=== PATIENT | female | born 1990 | race Asian ===

== ENCOUNTER 2016-10-23 14:59 | Emergency (ER) | payer SELFPAY ==
[~2016-10-23] VITALS: Ht 165.1 cm; Wt 104.3 kg
[~2016-10-23 14:59] MED LIST: CYCL10TA2 PO; IBUP-1060 PO; NAPR250T2 PO; OXYC-323 PO
[2016-10-23 15:41] LABS: BILIRUBIN,URINE NEGATIVE (NEG); GLUCOSE,URINE NEGATIVE (NEG); NITRITE,URINE NEGATIVE (NEG); PROTEIN,URINE NEGATIVE (NEG-TRACE); UROBILINOGEN,URINE 0.2 mg/dL (0.2 mg/dL)
--- NOTE | 2016-10-23 15:43 | PHYS DOC ---
Past Medical History Past Medical History: No Pertinent History Past Surgical History: Additional Past Surgical Histo: FOR STILLBORN AT 8 MONTHS: OCTOBER 04, 2017 Alcohol Use: None Drug Use: None Adult General Chief Complaint Chief Complaint: TEST HPI HPI Patient is a 26 year old female who presents requesting a test. She reports she has had some lower abdominal discomfort for about a week and thinks she might be . Her last menstrual period was sometime in August or September. She denies fevers or chills, nausea or vomiting, diarrhea or constipation, dysuria or hematuria, vaginal bleeding or discharge. She is , states one of her children after . She speaks [employer] & is accompanied by a friend who is interpreting for her. Review of Systems Review of Systems Constitutional: Denies fever or chills HENT: Denies nasal congestion or sore throat Respiratory: Denies cough or shortness of breath Cardiovascular: Denies chest pain or edema GI: Denies abdominal pain, nausea, vomiting, bloody stools or diarrhea : Denies dysuria or hematuria Musculoskeletal: Denies back pain or joint pain Integument: Denies rash or skin lesions Neurologic: Denies headache Allergies Allergies Allergies Coded Allergies Type Severity Reaction Last Updated Verified No Known Drug Allergies 03/08/14 No Physical Exam Physical Exam Constitutional: Obese, no acute distress, non-toxic appearance. HENT: Normocephalic, atraumatic, bilateral external ears normal, oropharynx moist, nose normal. Eyes: conjunctiva normal, no discharge. Cardiovascular: RRR, no murmurs, no edema. Lungs & Thorax: LCTAB, no wheezing, no respiratory distress. Abdomen: soft, nontender, nondistended. No masses or pulsatile masses, no rebound or guarding Skin: Warm, dry, no erythema, no rash. Back: No CVA tenderness. Extremities: No tenderness, no edema. Neurologic: Alert and oriented X 3 Current Patient Data Vital Signs Vital Signs Date Time Temp Pulse Resp B/P (MAP) Pulse Ox O2 Delivery O2 Flow Rate FiO2 10/23/16 16:16 83 16 122/64 (83) 99 10/23/16 15:00 98.1 Room Air 98.1 Lab Values Laboratory Tests Test 10/23/16 14:18 10/23/16 15:09 POC Urine HCG, Qualitative Hcg positive (Negative) Urine Collection Type Void Urine Color Yellow Urine Clarity Clear Urine pH 6.0 Urine Specific [place] 1.010 Urine Protein Negative mg/dL (NEG-TRACE) Urine Glucose (UA) Negative mg/dL (NEG) Urine Ketones (Stick) Negative mg/dL (NEG) Urine Blood Small (NEG) Urine Nitrite Negative (NEG) Urine Bilirubin Negative (NEG) Urine Urobilinogen Dipstick 0.2 mg/dL (0.2 mg/dL) Urine Leukocyte Esterase Large (NEG) Urine RBC Occ /HPF (0-2) Urine WBC 11-20 /HPF (0-4) Urine Squamous Epithelial Cells Many /LPF Urine Bacteria Many /HPF (0-FEW) Urine Mucus Slight /LPF EKG EKG [] Radiology/Procedures Radiology/Procedures [] Course & Med Decision Making Course & Med Decision Making Pertinent Labs and Imaging studies reviewed. (See chart for details) The patient presents with request for test. test is positive. She has contaminated UA with large bacteria, will treat with macrobid. Recommend follow up in OB clinic with Dr. Obrien as soon as possible. Come back for high fever, uncontrolled vomiting, severe abdominal/ pelvic pain, heavy bleeding requiring > 1 pad per hour, any otherwise worsening condition. Discharged home in stable condition. [] Dragon Disclaimer Dragon Disclaimer This electronic medical record was generated, in whole or in part, using a voice recognition dictation system. Departure Departure Impression: Primary Impression: Additional Impression: Urinary tract infection Disposition: 01 HOME, SELF-CARE Condition: STABLE Referrals: NO PCP (PCP) VENECIA OBRIEN Jr, MD Patient Instructions: - First Trimester, [id number], Urinary Tract Infection, [id number] Additional Instructions: You were seen in the emergency department today for test which did show that you are . You also had a bladder infection. Please take the prescribed antibiotic. Follow-up as soon as possible with Dr. Obrien in the OB clinic. Return to the emergency department for high fever, severe pain, uncontrolled vomiting, heavy vaginal bleeding requiring more than 1 pad per hour , any otherwise worsening condition. Scripts Nitrofurantoin Monohyd/M-Cryst (MACROBID 100 MG CAPSULE) 100 Mg Capsule 1 CAP PO BID, #14 CAP Prov: AFSANEH LANE MD 10/23/16 Problem Qualifiers AFSANEH LANE MD Oct 23, 2016 15:43
[2016-10-23 15:51] LABS: BACTERIA,URINE MANY /HPF (0-FEW); RBC,URINE OCC /HPF (0-2); SQUAMOUS EPITHELIAL CELL,UR MANY /LPF
[2016-10-23] MEDS ORDERED: NITR100C62 PO (16:09)
[2016-10-23 16:16] VITALS: BP 122/64
== END 2016-10-23 16:16 | disposition home or self-care (01) ==
LOC: ER 14:59
DX: O23.40 Unspecified infection of urinary tract in pregnancy, unspecified trimester (principal); Z3A.00 Weeks of gestation of pregnancy not specified; Z98.890 Other specified postprocedural states
CPT/HCPCS: 81001; 81025; 87086; 87186; 99284

== ENCOUNTER 2016-11-02 20:41 | Emergency (ER) | payer SELFPAY ==
[~2016-11-02] VITALS: Ht 157.5 cm; Wt 86.2 kg
[~2016-11-02 20:41] MED LIST changes: +NITR100C62 PO
[2016-11-02 21:27] LABS: BILIRUBIN,URINE NEGATIVE (NEG); GLUCOSE,URINE NEGATIVE (NEG); NITRITE,URINE NEGATIVE (NEG); PROTEIN,URINE NEGATIVE (NEG-TRACE); UROBILINOGEN,URINE 0.2 mg/dL (0.2 mg/dL)
[2016-11-02 21:29] LABS: BASO # 0.1 x10^3/uL (0.0-0.2); BASO % 1 % (0-3); EOS % 3 % (0-3); HEMATOCRIT 34.2 % (36.0-47.0); HEMOGLOBIN 10.7 g/dL (12.0-15.5); LYMPH # 2.6 x10^3/uL (1.0-4.8); LYMPH % 26 % (24-48); MEAN CORPUSCULAR HEMOGLOBIN 25 pg (25-35); MEAN CORPUSCULAR HGB CONC 31 g/dL (31-37); MEAN CORPUSCULAR VOLUME 78 fL (79-100); MONO % 8 % (0-9); NEUT % 61 % (31-73); PLATELET COUNT 362 x10^3/uL (140-400); RED BLOOD COUNT 4.39 x10^6/uL (3.50-5.40); RED CELL DISTRIBUTION WIDTH 16.8 % (11.5-14.5); WHITE BLOOD COUNT 9.9 x10^3/uL (4.0-11.0)
[2016-11-02 21:37] LABS: RBC,URINE RARE /HPF (0-2)
[2016-11-02 21:38] LABS: BACTERIA,URINE FEW /HPF (0-FEW); SQUAMOUS EPITHELIAL CELL,UR FEW /LPF; WBC,URINE OCC /HPF (0-4)
[2016-11-02 21:44] LABS: CALCIUM 8.2 mg/dL (8.5-10.1); CREATININE 0.8 mg/dL (0.6-1.0); GFR 85.4; POTASSIUM 3.7 mmol/L (3.5-5.1)
--- NOTE | 2016-11-03 00:41 | RAD ---
EXAM: OB < 14 WKS HISTORY: SPOTTING HCG 16780 COMPARISON: None. TECHNIQUE: Transverse and longitudinal sonography of the pelvis is performed utilizing transabdominal and transvaginal transducers. FINDINGS: Transabdominal imaging demonstrates an anteflexed uterus measuring 9.8 x 4.5 x 6.2 cm. Within the uterus is 7 gestational sac measuring up to 2.7 cm. An embryo is visualized within the gestational sac, with crown-rump length of 1.7 cm corresponding with ultrasound gestational age of 8 weeks 1 day. heart rate documented at 185 bpm. The right ovary is visualized measuring 2.1 x 1.2 x 1.5 cm, with internal blood flow documented. No adnexal mass is seen. The left ovary measures 3.0 x 1.9 x 1.9 cm, with internal blood flow documented. No adnexal mass is seen. No free fluid is seen. Transvaginal imaging demonstrates a nabothian cyst present in the cervix. There is redemonstration of the intrauterine gestational sac, with a yolk sac visualized. The crown-rump length is documented at 2.0 cm corresponding with ultrasound gestational age of 8 weeks 4 days. heart rate of 185 bpm documented. Left ovary visualized measuring 2.0 x 2.4 x 2.2 cm. Within the left ovary is a 2.2 cm hypoechoic, oval structure, likely represents the corpus luteal cyst. Internal blood flow is documented. Right ovary measures 2.4 x 1.7 x 1.7 cm, with blood flow documented. No adnexal mass is seen bilaterally. No free fluid is seen. IMPRESSION: 1. Single live intrauterine with an overall ultrasound gestational age of 8 weeks 3 days corresponding with an estimated date of delivery of 06/11/2017. 2. Both ovaries seen with blood flow documented. No adnexal mass. Electronically signed by: Francisca Locke MD (11/03/2016 12:37 AM) [facility]
[2016-11-03 01:00] VITALS: BP 95/52
--- NOTE | 2016-11-03 05:28 | PHYS DOC ---
Past Medical History Past Medical History: No Pertinent History Past Surgical History: Additional Past Surgical Histo: FOR STILLBORN AT 8 MONTHS: OCTOBER 04, 2017 Alcohol Use: None Drug Use: None Adult General Chief Complaint Chief Complaint: VAGINAL BLEEDING HPI HPI Patient is a 26 year old G4, P3 approximately 8 weeks station female who presents with upper abdominal pain and constipation. Patient states symptoms of intermittent for the past 3 days and. It is described as dull and migratory. Patient has urinary frequency or urinary urgency. No vaginal bleeding or discharge. No other acute symptoms or complaints. Review of Systems Review of Systems Review symptoms as per history of present illness. All other review symptoms are negative. Allergies Allergies Allergies Coded Allergies Type Severity Reaction Last Updated Verified No Known Drug Allergies 03/08/14 No Physical Exam Physical Exam Constitutional: Well developed, well nourished, no acute distress, non-toxic appearance. [] HENT: Normocephalic, atraumatic, bilateral external ears normal, oropharynx moist, no oral exudates, nose normal. [] Eyes: PERRLA, EOMI, conjunctiva normal, no discharge. [] Neck: Normal range of motion, no tenderness, supple, no stridor. [] Cardiovascular:Heart rate regular rhythm, no murmur [] Lungs & Thorax: Bilateral breath sounds clear to auscultation [] Abdomen: Bowel sounds normal, soft, nondescript proper abdominal pain, no rebound rigidity or guarding. [] Skin: Warm, dry, no erythema, no rash. [] Back: No tenderness, no CVA tenderness. [] Extremities: No tenderness, no cyanosis, no clubbing, ROM intact, no edema. [] Neurologic: Alert and oriented X 3, normal motor function, normal sensory function, no focal deficits noted. [] Psychologic: Affect normal, judgement normal, mood normal. [] Current Patient Data Vital Signs Vital Signs Date Time Temp Pulse Resp B/P (MAP) Pulse Ox O2 Delivery O2 Flow Rate FiO2 11/03/16 01:00 68 18 95/52 (66) 100 Room Air 11/02/16 21:07 99.2 99.2 Lab Values Laboratory Tests Test 11/02/16 20:20 11/02/16 20:50 11/02/16 21:20 POC Urine HCG, Qualitative Hcg positive (Negative) Urine Collection Type Unknown Urine Color Straw Urine Clarity Clear Urine pH 7.0 Urine Specific [place] 1.010 Urine Protein Negative mg/dL (NEG-TRACE) Urine Glucose (UA) Negative mg/dL (NEG) Urine Ketones (Stick) Negative mg/dL (NEG) Urine Blood Trace (NEG) Urine Nitrite Negative (NEG) Urine Bilirubin Negative (NEG) Urine Urobilinogen Dipstick 0.2 mg/dL (0.2 mg/dL) Urine Leukocyte Esterase Negative (NEG) Urine RBC Rare /HPF (0-2) Urine WBC Occ /HPF (0-4) Urine Squamous Epithelial Cells Few /LPF Urine Bacteria Few /HPF (0-FEW) White Blood Count 9.9 x10^3/uL (4.0-11.0) Red Blood Count 4.39 x10^6/uL (3.50-5.40) Hemoglobin 10.7 g/dL (12.0-15.5) L Hematocrit 34.2 % (36.0-47.0) L Mean Corpuscular Volume 78 fL (79-100) L Mean Corpuscular Hemoglobin 25 pg (25-35) Mean Corpuscular Hemoglobin Concent 31 g/dL (31-37) Red Cell Distribution Width 16.8 % (11.5-14.5) H Platelet Count 362 x10^3/uL (140-400) Neutrophils (%) (Auto) 61 % (31-73) Lymphocytes (%) (Auto) 26 % (24-48) Monocytes (%) (Auto) 8 % (0-9) Eosinophils (%) (Auto) 3 % (0-3) Basophils (%) (Auto) 1 % (0-3) Neutrophils # (Auto) 6.1 x10^3uL (1.8-7.7) Lymphocytes # (Auto) 2.6 x10^3/uL (1.0-4.8) Monocytes # (Auto) 0.8 x10^3/uL (0.0-1.1) Eosinophils # (Auto) 0.3 x10^3/uL (0.0-0.7) Basophils # (Auto) 0.1 x10^3/uL (0.0-0.2) Maternal Serum HCG Beta Subunit 11908 mIU/mL (0-5) H Sodium Level 139 mmol/L (136-145) Potassium Level 3.7 mmol/L (3.5-5.1) Chloride Level 105 mmol/L (98-107) Carbon Dioxide Level 24 mmol/L (21-32) Anion Gap 10 (6-14) Blood Urea Nitrogen 7 mg/dL (7-20) Creatinine 0.8 mg/dL (0.6-1.0) Estimated GFR (Cockcroft-Gault) 85.4 Glucose Level 96 mg/dL (70-99) Calcium Level 8.2 mg/dL (8.5-10.1) L Laboratory Tests 11/02/16 21:20 Laboratory Tests 11/02/16 21:20 EKG EKG [] Radiology/Procedures Radiology/Procedures [OB ultrasound: Single live intrauterine with ultrasound gestational age of 8 weeks, 3 days. Ovaries are seen with blood flow documented. No adnexal masses present per radiology report.] Course & Med Decision Making Course & Med Decision Making Pertinent Labs and Imaging studies reviewed. (See chart for details) [Prescription abdominal pain with benign abdominal exam. Patient states she is constipated. Lab work, ultrasound unremarkable. Recommend supportive care with PCP follow-up.] Dragon Disclaimer Dragon Disclaimer This electronic medical record was generated, in whole or in part, using a voice recognition dictation system. Departure Departure Impression: Primary Impression: Threatened Disposition: 01 HOME, SELF-CARE Condition: GOOD Referrals: UNKNOWN PCP NAME (PCP) Patient Instructions: Threatened Miscarriage, [id number] Additional Instructions: You were evaluated for abdominal pain and vaginal spotting in early . An OB ultrasound was performed and shows a viable 8 week 3 day intra-uterine . Please go home and rest, take Tylenol for pain and daily laxative. Rest pelvis, no sex for one week. Contact Dr. Obrien's office and schedule follow-up appointment. If you develop new or worsening symptoms, return to the ED. MARGOT DE LA CRUZ DO Nov 03, 2016 05:28
== END 2016-11-03 01:00 | disposition home or self-care (01) ==
LOC: ER 20:41
DX: O20.0 Threatened abortion (principal); Z3A.08 8 weeks gestation of pregnancy
CPT/HCPCS: 36415; 76801; 80048; 81001; 81025; 84702; 85025; 99285-25

== ENCOUNTER 2016-12-18 17:37 | Emergency (ER) | payer SELFPAY ==
[~2016-12-18 17:37] MED LIST changes: -NAPR250T2 PO; +NAPR250T6 PO
[2016-12-18 18:29] LABS: BILIRUBIN,URINE NEGATIVE (NEG); GLUCOSE,URINE NEGATIVE (NEG); NITRITE,URINE NEGATIVE (NEG); PROTEIN,URINE NEGATIVE (NEG-TRACE); UROBILINOGEN,URINE 0.2 mg/dL (0.2 mg/dL)
[2016-12-18 18:35] LABS: BACTERIA,URINE FEW /HPF (0-FEW); RBC,URINE 0 /HPF (0-2); SQUAMOUS EPITHELIAL CELL,UR FEW /LPF
[2016-12-18 19:10] LABS: BASO % 0 % (0-3); EOS % 3 % (0-3); HEMATOCRIT 34.9 % (36.0-47.0); HEMOGLOBIN 10.9 g/dL (12.0-15.5); LYMPH % 20 % (24-48); MEAN CORPUSCULAR HEMOGLOBIN 25 pg (25-35); MEAN CORPUSCULAR HGB CONC 31 g/dL (31-37); MEAN CORPUSCULAR VOLUME 79 fL (79-100); MONO % 8 % (0-9); NEUT % 69 % (31-73); PLATELET COUNT 315 x10^3/uL (140-400); RED BLOOD COUNT 4.44 x10^6/uL (3.50-5.40); RED CELL DISTRIBUTION WIDTH 16.7 % (11.5-14.5)
--- NOTE | 2016-12-18 20:22 | RAD ---
Right upper quadrant abdominal ultrasound, 12/18/2016: HISTORY: Pain The gallbladder is not well distended. Its wall is mildly thickened measuring 4 mm. No definite gallstones are seen. The patient was reportedly tender to transducer pressure over this region. No bile duct dilatation is present. The liver demonstrates increased echogenicity in a diffuse pattern suggesting fatty change. Only a portion of the pancreatic body was visible and it shows no abnormality. Other portions of the pancreas are obscured by overlying bowel. Limited views of the right kidney show no abnormality. IMPRESSION: 1. Mild gallbladder wall thickening. This is a nonspecific finding which can be due to a variety of causes including liver disease, renal disease, hypoproteinemia or cholecystitis. 2. No sonographic evidence of cholelithiasis. 3. Increased hepatic echogenicity suggesting fatty change. Electronically signed by: Santos Vallecillo MD (12/18/2016 8:19 PM) [facility]
[2016-12-18 20:45] LABS: CALCIUM 8.3 mg/dL (8.5-10.1); CREATININE 0.6 mg/dL (0.6-1.0); POTASSIUM 3.9 mmol/L (3.5-5.1)
[2016-12-18 20:52] LABS: ALBUMIN 2.5 g/dL (3.4-5.0); ALBUMIN/GLOBULIN RATIO 0.5 (1.0-1.7); TOTAL BILIRUBIN 0.2 mg/dL (0.2-1.0); TOTAL PROTEIN 7.4 g/dL (6.4-8.2)
[2016-12-18] MEDS ORDERED: HYDR-2758 PO (21:21)
[2016-12-18] MEDS ORDERED: ONDA4TAB10 SL (21:21)
--- NOTE | 2016-12-18 21:21 | PHYS DOC ---
Past Medical History Past Medical History: No Pertinent History Past Surgical History: Additional Past Surgical Histo: FOR STILLBORN AT 8 MONTHS: OCTOBER 04, 2017 Alcohol Use: None Drug Use: None Adult General Chief Complaint Chief Complaint: ABDOMINAL PAIN IN HPI HPI 26-year-old female presenting the emergency department with epigastric abdominal pain over the past 8-12 hours. It is a burning sensation that is nonradiating intermittent. She does have nausea with a few episodes of nonbilious nonbloody emesis. She is 15 weeks by ultrasound. Review of systems is negative for fevers or chills. She denies vaginal bleeding. She denies polyuria or dysuria. All other review of systems is negative unless otherwise noted in history of present illness. ED course: 26-year-old female presenting to the emergency department today with presenting with epigastric abdominal pain in . Vital signs afebrile with a normal heart rate. Saturating well on room. Pertinent physical exam findings showed a soft and minimally tender abdomen in the epigastrium. No Argueta sign. Ultrasound of gallbladder shows mild thickening of the gallbladder wall. Blood work shows normal white blood cell count. I discussed the case with Dr. Goldberg our hydrographic surveyor . Dr. Reis recommends follow-up in clinic in 2-3 days. Patient is not febrile here for white blood cell count is within normal limits. Repeat abdominal examination shows a nontender right upper quadrant with a negative Argueta sign. I had [id number] discharge instructions with the patient and recommended that if she develops a fever or get worse that she could return to the emergency department. Patient is comfortable plan. Review of Systems Review of Systems SEE ABOVE. Allergies Allergies Allergies Coded Allergies Type Severity Reaction Last Updated Verified No Known Drug Allergies 03/08/14 No Physical Exam Physical Exam SEE ABOVE Constitutional: Well developed, well nourished, no acute distress, non-toxic appearance. HENT: Normocephalic, atraumatic, bilateral external ears normal, oropharynx moist, no oral exudates, nose normal. [] Eyes: PERRLA, EOMI, conjunctiva normal, no discharge. [] Neck: Normal range of motion, no tenderness, supple, no stridor. Cardiovascular:Heart rate regular rhythm, no murmur [] Lungs & Thorax: Bilateral breath sounds clear to auscultation [] Abdomen: SEE ABOVE Skin: Warm, dry, no erythema, no rash. Back: No tenderness, no CVA tenderness. [] Extremities: No tenderness, no cyanosis, no clubbing, ROM intact, no edema. [] Neurologic: Alert and oriented X 3, normal motor function, normal sensory function, no focal deficits noted. Psychologic: Affect normal, judgement normal, mood normal. [] Current Patient Data Vital Signs Vital Signs Date Time Temp Pulse Resp B/P (MAP) Pulse Ox O2 Delivery O2 Flow Rate FiO2 12/18/16 20:00 74 17 107/56 (73) 98 Room Air 12/18/16 18:13 99.0 99.0 Lab Values Laboratory Tests Test 12/18/16 18:15 12/18/16 18:18 12/18/16 18:42 12/18/16 20:20 Urine Collection Type Unknown Urine Color Yellow Urine Clarity Clear Urine pH 7.0 Urine Specific [place] <=1.005 Urine Protein Negative mg/dL (NEG-TRACE) Urine Glucose (UA) Negative mg/dL (NEG) Urine Ketones (Stick) Negative mg/dL (NEG) Urine Blood Negative (NEG) Urine Nitrite Negative (NEG) Urine Bilirubin Negative (NEG) Urine Urobilinogen Dipstick 0.2 mg/dL (0.2 mg/dL) Urine Leukocyte Esterase Trace (NEG) Urine RBC 0 /HPF (0-2) Urine WBC 1-4 /HPF (0-4) Urine Squamous Epithelial Cells Few /LPF Urine Bacteria Few /HPF (0-FEW) POC Urine HCG, Qualitative Hcg positive (Negative) White Blood Count 10.0 x10^3/uL (4.0-11.0) Red Blood Count 4.44 x10^6/uL (3.50-5.40) Hemoglobin 10.9 g/dL (12.0-15.5) L Hematocrit 34.9 % (36.0-47.0) L Mean Corpuscular Volume 79 fL (79-100) Mean Corpuscular Hemoglobin 25 pg (25-35) Mean Corpuscular Hemoglobin Concent 31 g/dL (31-37) Red Cell Distribution Width 16.7 % (11.5-14.5) H Platelet Count 315 x10^3/uL (140-400) Neutrophils (%) (Auto) 69 % (31-73) Lymphocytes (%) (Auto) 20 % (24-48) L Monocytes (%) (Auto) 8 % (0-9) Eosinophils (%) (Auto) 3 % (0-3) Basophils (%) (Auto) 0 % (0-3) Neutrophils # (Auto) 6.9 x10^3uL (1.8-7.7) Lymphocytes # (Auto) 2.0 x10^3/uL (1.0-4.8) Monocytes # (Auto) 0.8 x10^3/uL (0.0-1.1) Eosinophils # (Auto) 0.3 x10^3/uL (0.0-0.7) Basophils # (Auto) 0.0 x10^3/uL (0.0-0.2) Sodium Level 136 mmol/L (136-145) Potassium Level 3.9 mmol/L (3.5-5.1) Chloride Level 105 mmol/L (98-107) Carbon Dioxide Level 25 mmol/L (21-32) Anion Gap 6 (6-14) Blood Urea Nitrogen 4 mg/dL (7-20) L Creatinine 0.6 mg/dL (0.6-1.0) Estimated GFR (Cockcroft-Gault) 119.0 BUN/Creatinine Ratio 7 (6-20) Glucose Level 80 mg/dL (70-99) Calcium Level 8.3 mg/dL (8.5-10.1) L Total Bilirubin 0.2 mg/dL (0.2-1.0) Aspartate Amino Transferase (AST) 19 U/L (15-37) Alanine Aminotransferase (ALT) 22 U/L (14-59) Alkaline Phosphatase 74 U/L (46-116) Total Protein 7.4 g/dL (6.4-8.2) Albumin 2.5 g/dL (3.4-5.0) L Albumin/Globulin Ratio 0.5 (1.0-1.7) L Lipase 176 U/L (73-393) Laboratory Tests 12/18/16 18:42 Laboratory Tests 12/18/16 20:20 EKG EKG [] Radiology/Procedures Radiology/Procedures [] Course & Med Decision Making Course & Med Decision Making Pertinent Labs and Imaging studies reviewed. (See chart for details) [] Dragon Disclaimer Dragon Disclaimer This electronic medical record was generated, in whole or in part, using a voice recognition dictation system. Departure Departure Impression: Primary Impression: Additional Impression: Abdominal pain Disposition: HOME, SELF-CARE Condition: STABLE Referrals: UNKNOWN PCP NAME (PCP) QUIQUE MEAD MD on tuesday, OB Patient Instructions: Abdominal Pain During Additional Instructions: Thank you for allowing us to participate in your care today. Followup with our ob doctor on Tuesday. Call your Primary Doctor tomorrow and inform them of your visit today. If you do not have a primary care provider you can ask for a list of our primary care providers. Return to the emergency department you have any new or concerning findings. This should be evaluated by the primary care physician and any necessary consulting services for continued management within a few days after discharge. Return to emergency room if you have any new or concerning symptoms including but not limited to fever, chills, nausea, vomiting, intractable pain, any new rashes, chest pain, shortness of air, uncontrolled bleeding, difficulty breathing, and/or vision loss. Scripts Ondansetron (ZOFRAN ODT) 4 Mg Tab.rapdis 1 TAB SL PRN Q8HRS Y for NAUSEA, #6 TAB Prov: COLT WOLF MD 12/18/16 Hydrocodone Bit/Acetaminophen (HYDROCODONE-APAP 5-325 ) 1 Each Tablet 1 TAB PO PRN Q6HRS Y for PAIN, #15 TAB 0 Refills Be careful as this medication may cause you to be drowsy or tired. Do not drive on this medication. Prov: COLT WOLF MD 12/18/16 Problem Qualifiers COLT WOLF MD Dec 18, 2016 21:21
[2016-12-18 21:28] VITALS: BP 116/62
--- NOTE | 2016-12-22 10:22 | VNOTE ---
CALL BACK NOTE CALL BACK Microbiology 12/18/16 Urine Culture - Final, Complete 12/18/16 Urine Culture Result 1 (KING) - Final, Complete 12/18/16 Urine Culture Result 2 (KING) - Final, Complete 12/18/16 Antimicrobic Susceptibility - Final, Complete Attempted to contact the patient at area code [phone] with a male answering the phone states that she does not live at this number any more. He does state that he knows who she is and how to get a hold of her. Message was left for him to contact her and have her call us back. Recommended patient to be placed on macrobid 100 mg BID for 7 days. THIAGO SHIN APRN Dec 22, 2016 10:22
== END 2016-12-18 21:30 | disposition home or self-care (01) ==
LOC: ER 17:37
DX: O26.892 Other specified pregnancy related conditions, second trimester (principal); R10.13 Epigastric pain; Z3A.15 15 weeks gestation of pregnancy
CPT/HCPCS: 36415; 76705; 80053; 81001; 81025; 83690; 85025; 87086; 99285-25

== ENCOUNTER 2018-01-29 17:46 | Emergency (ER) | payer SELFPAY ==
[~2018-01-29] VITALS: Ht 162.6 cm; Wt 106.6 kg
[~2018-01-29 17:46] MED LIST changes: +HYDR-2758 PO; +ONDA4TAB10 SL
[2018-01-29 18:27] LABS: BILIRUBIN,URINE NEGATIVE (NEG); CLARITY,URINE CLEAR; COLOR,URINE YELLOW; NITRITE,URINE NEGATIVE (NEG); PH,URINE 6.5; PROTEIN,URINE NEGATIVE (NEG-TRACE)
[2018-01-29] MEDS ORDERED: IV NORMAL SALINE 1000ML BAG 1,000 ML IV ONE (18:30)
[2018-01-29 18:41] LABS: BASO % 1 % (0-3); EOS # 0.2 x10^3/uL (0.0-0.7); EOS % 4 % (0-3); HEMATOCRIT 38.9 % (36.0-47.0); HEMOGLOBIN 12.7 g/dL (12.0-15.5); LYMPH # 2.1 x10^3/uL (1.0-4.8); LYMPH % 31 % (24-48); MEAN CORPUSCULAR HEMOGLOBIN 28 pg (25-35); MEAN CORPUSCULAR HGB CONC 33 g/dL (31-37); MEAN CORPUSCULAR VOLUME 86 fL (79-100); MONO # 0.6 x10^3/uL (0.0-1.1); MONO % 8 % (0-9); NEUT # 3.9 x10^3uL (1.8-7.7); NEUT % 57 % (31-73); PLATELET COUNT 319 x10^3/uL (140-400); RED BLOOD COUNT 4.52 x10^6/uL (3.50-5.40); RED CELL DISTRIBUTION WIDTH 14.2 % (11.5-14.5); WHITE BLOOD COUNT 6.8 x10^3/uL (4.0-11.0)
[2018-01-29] MEDS ORDERED: IOHEXOL 300 MG/ML 100ML VIAL. IV ONE (18:45)
[2018-01-29] MEDS ORDERED: KETOROLAC 30 MG/ML VIAL. IV ONE (18:45)
[2018-01-29] MEDS ORDERED: ONDANSETRON PF 4 MG/2 ML VIAL. IV ONE (18:45)
[2018-01-29] MEDS ORDERED: FAMOTIDINE 20 MG/2 ML VIAL IVP ONE (18:45)
[2018-01-29 18:46] LABS: BACTERIA,URINE MANY /HPF (0-FEW); RBC,URINE RARE /HPF (0-2); SQUAMOUS EPITHELIAL CELL,UR MANY /LPF
[2018-01-29 18:49] LABS: CREATININE 0.9 mg/dL (0.6-1.0); POTASSIUM 3.4 mmol/L (3.5-5.1)
[2018-01-29 18:55] LABS: ALBUMIN 3.7 g/dL (3.4-5.0); ALBUMIN/GLOBULIN RATIO 0.8 (1.0-1.7); TOTAL BILIRUBIN 0.6 mg/dL (0.2-1.0); TOTAL PROTEIN 8.3 g/dL (6.4-8.2)
[2018-01-29] MEDS ORDERED: CONTRAST GIVEN. MC PRN (19:00)
[2018-01-29 19:22] LABS: INFLUENZA A PATIENT NEGATIVE (NEGATIVE); INFLUENZA B PATIENT NEGATIVE (NEGATIVE)
--- NOTE | 2018-01-29 19:54 | RAD ---
CT ABD PELV W/ IV CONTRST ONLY dated 01/29/2018 6:15 PM Indication: Pain paingeneralized abd pain inj 75ml Omni 300 prev sent . Comparison: 01/07/2015 Technique: Contiguous axial imaging of the abdomen and pelvis performed following the intravenous administration of 75 cc Omnipaque 300. One or more of the following individualized dose reduction techniques were utilized for this examination: 1. Automated exposure control 2. Adjustment of the mA and/or kV according to patient size 3. Use of iterative reconstruction technique Findings: Limited images of lung bases are clear. Heart size mildly enlarged. No pleural or pericardial effusion. Diffuse low-density of the liver, compatible with fatty infiltration. No apparent mass. Biliary tree normal in caliber. The gallbladder is collapsed and not well evaluated. Spleen is normal in size. Pancreas, adrenal glands and kidneys are unremarkable. No hydronephrosis. Unopacified GI tract normal in caliber and contour. No focal bowel wall thickening. No inflammatory stranding in the mesentery. The appendix is normal in caliber. No ascites or lymphadenopathy. Abdominal aorta normal in caliber. There are small umbilical and infraumbilical ventral hernias containing only fat. Images of pelvis show nondistended urinary bladder. Uterus and adnexa are unremarkable. No free fluid or pelvic lymphadenopathy. There is 2.2 cm cystic focus at the left ovary. Bone windows show no acute findings. Mild multilevel spondylosis. IMPRESSION: 1. No acute abnormality of abdomen or pelvis. Normal appendix. 2. Fatty infiltration of the liver. 3. Small left ovarian cyst. Electronically signed by: Elkin Lowe MD (01/29/2018 7:51 PM) [facility]
--- NOTE | 2018-01-29 20:12 | PHYS DOC ---
Past Medical History Past Medical History: No Pertinent History Past Surgical History: Additional Past Surgical Histo: FOR STILLBORN AT 8 MONTHS: OCTOBER [birth year], 2017 Alcohol Use: None Drug Use: None Adult General Chief Complaint Chief Complaint: ABDOMINAL PAIN [facility] HPI Patient is a 27 year old female who presents with nausea and generalized abdominal pain last 2 days. Patient denies any vaginal bleeding or discharge. She denies any dysuria. Last period was in November. She last took Tylenol at 1100 for pain today. Last bowel movement was at 1600 today and she states it was normal for her. Alert and oriented. Vital signs are 97.6, 77 heart rate, 97 % on room air, 133/70. Ambulatory with a steady gait. Review of Systems Review of Systems Constitutional: Denies fever or chills [] Eyes: Denies change in visual acuity, redness, or eye pain [] HENT: Denies nasal congestion or sore throat [] Respiratory: Denies cough or shortness of breath [] Cardiovascular: No additional information not addressed in HPI [] GI: Generalized abdominal pain, nausea. Denies vomiting, bloody stools or diarrhea [] : Denies dysuria or hematuria [] Musculoskeletal: Denies back pain or joint pain [] Integument: Denies rash or skin lesions [] Neurologic: Denies headache, focal weakness or sensory changes [] Endocrine: Denies polyuria or polydipsia [] All other systems were reviewed and found to be within normal limits, except as documented in this note. Current Medications Current Medications Current Medications Medications (Trade) Dose Ordered Sig/Gwen Start Time Stop Time Status Last Admin Dose Admin Famotidine (Pepcid Vial) 20 mg 1X ONCE 01/29/18 18:45 01/29/18 18:46 DC 01/29/18 18:54 20 MG Info (CONTRAST GIVEN -- Rx MONITORING) 1 each PRN DAILY PRN 01/29/18 19:00 01/31/18 18:59 Iohexol (Omnipaque 300 Mg/ml) 75 ml 1X ONCE 01/29/18 18:45 01/29/18 18:48 DC 01/29/18 18:45 75 ML Ketorolac Tromethamine (Toradol 30mg Vial) 30 mg 1X ONCE 01/29/18 18:45 01/29/18 18:46 DC 01/29/18 18:56 30 MG Ondansetron HCl (Zofran) 4 mg 1X ONCE 01/29/18 18:45 01/29/18 18:46 DC 01/29/18 18:53 4 MG Sodium Chloride 1,000 ml @ 1,000 mls/hr 1X ONCE 01/29/18 18:30 01/29/18 19:29 DC 01/29/18 18:52 1,000 MLS/HR Allergies Allergies Allergies Coded Allergies Type Severity Reaction Last Updated Verified No Known Drug Allergies 03/08/14 No Physical Exam Physical Exam Constitutional: Well developed, well nourished, no acute distress, non-toxic appearance. [] HENT: Normocephalic, atraumatic, bilateral external ears normal, oropharynx moist, no oral exudates, nose normal. [] Eyes: PERRLA, EOMI, conjunctiva normal, no discharge. [] Neck: Normal range of motion, no tenderness, supple, no stridor. [] Cardiovascular:Heart rate regular rhythm, no murmur [] Lungs & Thorax: Bilateral breath sounds clear to auscultation [] Abdomen: Bowel sounds normal, soft, generalized tenderness, no masses, no pulsatile masses. [] Skin: Warm, dry, no erythema, no rash. [] Back: No tenderness, no CVA tenderness. [] Extremities: No tenderness, no cyanosis, no clubbing, ROM intact, no edema. [] Neurologic: Alert and oriented X 3, normal motor function, normal sensory function, no focal deficits noted. [] Psychologic: Affect normal, judgement normal, mood normal. [] Current Patient Data Vital Signs Vital Signs Date Time Temp Pulse Resp B/P (MAP) Pulse Ox O2 Delivery O2 Flow Rate FiO2 01/29/18 19:00 64 119/71 (87) 100 Room Air 01/29/18 17:55 97.6 16 97.6 Lab Values Laboratory Tests Test 01/29/18 17:55 01/29/18 18:09 01/29/18 18:25 01/29/18 18:58 Urine Collection Type Unknown Urine Color Yellow Urine Clarity Clear Urine pH 6.5 Urine Specific [place] 1.020 Urine Protein Negative mg/dL (NEG-TRACE) Urine Glucose (UA) Negative mg/dL (NEG) Urine Ketones (Stick) Negative mg/dL (NEG) Urine Blood Negative (NEG) Urine Nitrite Negative (NEG) Urine Bilirubin Negative (NEG) Urine Urobilinogen Dipstick 4.0 mg/dL (0.2 mg/dL) Urine Leukocyte Esterase Small (NEG) Urine RBC Rare /HPF (0-2) Urine WBC 1-4 /HPF (0-4) Urine Squamous Epithelial Cells Many /LPF Urine Bacteria Many /HPF (0-FEW) Urine Mucus Marked /LPF POC Urine HCG, Qualitative Hcg negative (Negative) White Blood Count 6.8 x10^3/uL (4.0-11.0) Red Blood Count 4.52 x10^6/uL (3.50-5.40) Hemoglobin 12.7 g/dL (12.0-15.5) Hematocrit 38.9 % (36.0-47.0) Mean Corpuscular Volume 86 fL (79-100) Mean Corpuscular Hemoglobin 28 pg (25-35) Mean Corpuscular Hemoglobin Concent 33 g/dL (31-37) Red Cell Distribution Width 14.2 % (11.5-14.5) Platelet Count 319 x10^3/uL (140-400) Neutrophils (%) (Auto) 57 % (31-73) Lymphocytes (%) (Auto) 31 % (24-48) Monocytes (%) (Auto) 8 % (0-9) Eosinophils (%) (Auto) 4 % (0-3) H Basophils (%) (Auto) 1 % (0-3) Neutrophils # (Auto) 3.9 x10^3uL (1.8-7.7) Lymphocytes # (Auto) 2.1 x10^3/uL (1.0-4.8) Monocytes # (Auto) 0.6 x10^3/uL (0.0-1.1) Eosinophils # (Auto) 0.2 x10^3/uL (0.0-0.7) Basophils # (Auto) 0.0 x10^3/uL (0.0-0.2) Sodium Level 140 mmol/L (136-145) Potassium Level 3.4 mmol/L (3.5-5.1) L Chloride Level 105 mmol/L (98-107) Carbon Dioxide Level 26 mmol/L (21-32) Anion Gap 9 (6-14) Blood Urea Nitrogen 9 mg/dL (7-20) Creatinine 0.9 mg/dL (0.6-1.0) Estimated GFR (Cockcroft-Gault) 74.0 BUN/Creatinine Ratio 10 (6-20) Glucose Level 96 mg/dL (70-99) Calcium Level 9.0 mg/dL (8.5-10.1) Total Bilirubin 0.6 mg/dL (0.2-1.0) Aspartate Amino Transferase (AST) 71 U/L (15-37) H Alanine Aminotransferase (ALT) 65 U/L (14-59) H Alkaline Phosphatase 117 U/L (46-116) H Total Protein 8.3 g/dL (6.4-8.2) H Albumin 3.7 g/dL (3.4-5.0) Albumin/Globulin Ratio 0.8 (1.0-1.7) L Lipase 187 U/L (73-393) Influenza Type A Antigen Negative (NEGATIVE) Influenza Type B Antigen Negative (NEGATIVE) Laboratory Tests 01/29/18 18:25 Laboratory Tests 01/29/18 18:25 EKG EKG [] Radiology/Procedures Radiology/Procedures [] Impressions: [facility] [address] [place] [address] IMAGING REPORT Signed PATIENT: CRYSTAL MILLIGAN ACCOUNT: [id number] : 1990 LOCATION: ER AGE: 27 SEX: F EXAM STATUS: REG ER ORD. PHYSICIAN: THIAGO FITZGERALD APRN REASON: generalised abdominal pain PROCEDURE: CT ABD PELV W/ IV CONTRST ONLY CT ABD PELV W/ IV CONTRST ONLY dated 01/29/2018 6:15 PM Indication: Pain paingeneralized abd pain inj 75ml Omni 300 prev sent . Comparison: 01/07/2015 Technique: Contiguous axial imaging of the abdomen and pelvis performed following the intravenous administration of 75 cc Omnipaque 300. One or more of the following individualized dose reduction techniques were utilized for this examination: 1. Automated exposure control 2. Adjustment of the mA and/or kV according to patient size 3. Use of iterative reconstruction technique Findings: Limited images of lung bases are clear. Heart size mildly enlarged. No pleural or pericardial effusion. Diffuse low-density of the liver, compatible with fatty infiltration. No apparent mass. Biliary tree normal in caliber. The gallbladder is collapsed and not well evaluated. Spleen is normal in size. Pancreas, adrenal glands and kidneys are unremarkable. No hydronephrosis. Unopacified GI tract normal in caliber and contour. No focal bowel wall thickening. No inflammatory stranding in the mesentery. The appendix is normal in caliber. No ascites or lymphadenopathy. Abdominal aorta normal in caliber. There are small umbilical and infraumbilical ventral hernias containing only fat. Images of pelvis show nondistended urinary bladder. Uterus and adnexa are unremarkable. No free fluid or pelvic lymphadenopathy. There is 2.2 cm cystic focus at the left ovary. Bone windows show no acute findings. Mild multilevel spondylosis. IMPRESSION: 1. No acute abnormality of abdomen or pelvis. Normal appendix. 2. Fatty infiltration of the liver. 3. Small left ovarian cyst. Electronically signed by: Elkin Lowe MD (01/29/2018 7:51 PM) [facility] DICTATED and SIGNED BY: ELKIN LOWE MD DATE: 01/29/181946 Course & Med Decision Making Course & Med Decision Making Patient is a 27 year old female who presents with nausea and generalized abdominal pain last 2 days. Patient denies any vaginal bleeding or discharge. She denies any dysuria. Last period was in November. She last took Tylenol at 1100 for pain today. Last bowel movement was at 1600 today and she states it was normal for her. Alert and oriented. Vital signs are 97.6, 77 heart rate, 97 % on room air, 133/70. Ambulatory with a steady gait. Abdomen is soft and has generalized pain with palpation. Patient states that at times it feels sharp but states his heart to describe. She denies shortness of air, chest pain, vomiting. Urine shows no infection. Lungs are clear to auscultation in all lobes. She rates her pain 8 out of 10. Heart rate regular without murmur. PERRLA. Neurologically intact. Patient doesn't have any generalized edema. test is negative. Blood work is unremarkable except she has a vacant liver enzymes. Patient states she does not drink alcohol or take Tylenol regularly she takes no medications daily. I have told the patient that she must follow-up with GI and her primary care to have these reevaluated. CT abdomen and pelvis show no acute findings. Patient is sent home with Zofran and told to drink plenty of fluids and to slowly increase her diet to solid foods. She does state she is feeling better. She received Pepcid, Zofran, 1 bolus of normal saline. [] Dragon Disclaimer Dragon Disclaimer This electronic medical record was generated, in whole or in part, using a voice recognition dictation system. Departure Departure Impression: Primary Impression: Abdominal pain Additional Impression: Nausea Disposition: HOME, SELF-CARE Condition: STABLE Referrals: NO PCP (PCP) ANA WILKERSON MD Patient Instructions: Abdominal Pain (Nonspecific), Nausea, Adult Additional Instructions: Follow up with your primary care provider and GI as your liver enzymes are elevated. Do no take and Tylenol or drink alcohol until your liver enzymes have been rechecked. Scripts Ondansetron (ONDANSETRON ODT) 4 Mg Tab.rapdis 1 TAB PO PRN Q6-8HRS, #16 TAB Prov: THIAGO FITZGERALD APRN 01/29/18 Problem Qualifiers Primary Impression: Abdominal pain Abdominal location: generalized Qualified Codes: R10.84 - Generalized abdominal pain THIAGO FITZGERALD TV TECHNICIAN Jan 29, 2018 20:12
[2018-01-29] MEDS ORDERED: ONDA4TAB12 PO (20:19)
[2018-01-29 21:12] VITALS: BP 126/72
== END 2018-01-29 21:14 | disposition home or self-care (01) ==
LOC: ER 17:46
DX: R10.84 Generalized abdominal pain (principal); R11.0 Nausea; N83.292 Other ovarian cyst, left side; K76.0 Fatty (change of) liver, not elsewhere classified; Z98.890 Other specified postprocedural states
CPT/HCPCS: 36415; 74177; 80053; 81001; 81025; 83690; 85025; 87804; 96374; 96375; 99285; J1885; J2405; J3490; J7030; Q9967

== ENCOUNTER 2018-09-22 12:42 | Emergency (ER) | payer SELFPAY ==
[~2018-09-22] VITALS: Ht 160 cm; Wt 113.4 kg
[~2018-09-22 12:42] MED LIST changes: -HYDR-2758 PO; +HYDR-2761 PO; +ONDA4TAB12 PO; -OXYC-323 PO; +OXYC1TAB15 PO
[2018-09-22] MEDS ORDERED: DEXAMETHASONE 4 MG TABLET PO STA (14:01)
[2018-09-22] MEDS ORDERED: ONDA4TAB12 PO (14:12)
[2018-09-22] MEDS ORDERED: AMOX1TAB61 PO (14:12)
--- NOTE | 2018-09-22 14:12 | PHYS DOC ---
Past Medical History Past Medical History: No Pertinent History Past Surgical History: Additional Past Surgical Histo: FOR STILLBORN AT 8 MONTHS: OCTOBER 04, 2017 Alcohol Use: None Drug Use: None Adult General Chief Complaint Chief Complaint: ABDOMINAL PAIN HPI HPI Patient is a 27 year old female presents with sore throat, left ear pain, fever, and headache this been ongoing since yesterday. The patient also has asso ciated symptoms of feeling nauseous. States she is not taking anything for the pain or fever. Her pain 10 out of 10 in severity and describes as achy.] Review of Systems Review of Systems Constitutional: Reports fever or chills [] Eyes: Denies change in visual acuity, redness, or eye pain [] HENT: Reports sore throat and L ear pain. Respiratory: Denies cough or shortness of breath [] Cardiovascular: No additional information not addressed in HPI [] GI: Reports nausea. Denies abdominal pain, vomiting, bloody stools or diarrhea [] : Denies dysuria or hematuria [] Musculoskeletal: Denies back pain or joint pain [] Integument: Denies rash or skin lesions [] Neurologic: Denies headache, focal weakness or sensory changes [] Endocrine: Denies polyuria or polydipsia [] Complete systems were reviewed and found to be within normal limits, except as documented in this note. Allergies Allergies Allergies Coded Allergies Type Severity Reaction Last Updated Verified No Known Drug Allergies 03/08/14 No Physical Exam Physical Exam Constitutional: Well developed, well nourished, no acute distress, non-toxic appearance. [] HENT: Normocephalic, atraumatic, bilateral external ears normal, left tympanic membranes is erythematous, and Right tympanic membrane is pearly chan, oropharynx moist, tonsils are 2+/4 with oral exudates, nose normal. [] Eyes: PERRLA, EOMI, conjunctiva normal, no discharge. [] Neck: Normal range of motion, no tenderness, supple, no stridor. [] Cardiovascular:Heart rate regular rhythm, no murmur [] Lungs & Thorax: Bilateral breath sounds clear to auscultation [] Abdomen: Bowel sounds normal, soft, no tenderness, no masses, no pulsatile masses. [] Skin: Warm, dry, no erythema, no rash. [] Back: No tenderness, no CVA tenderness. [] Extremities: No tenderness, no cyanosis, no clubbing, ROM intact, no edema. [] Neurologic: Alert and oriented X 3, normal motor function, normal sensory function, no focal deficits noted. [] Psychologic: Affect normal, judgement normal, mood normal. [] Current Patient Data Vital Signs Vital Signs Date Time Temp Pulse Resp B/P (MAP) Pulse Ox O2 Delivery O2 Flow Rate FiO2 09/22/18 13:12 99.9 110 20 136/65 (88) 98 Room Air 99.9 EKG EKG [] Radiology/Procedures Radiology/Procedures [] Course & Med Decision Making Course & Med Decision Making Pertinent Labs and Imaging studies reviewed. (See chart for details) Appears to have ear infection and strep throat. Will treat for this. Will also give dexamethasone, Zofran, and Toradol. Patient LMP was 6-19. Dragon Disclaimer Dragon Disclaimer This electronic medical record was generated, in whole or in part, using a voice recognition dictation system. Departure Departure Impression: Primary Impression: Strep pharyngitis Additional Impression: Otitis media Disposition: 01 HOME, SELF-CARE Condition: STABLE Referrals: NO PCP (PCP) Patient Instructions: Otitis Media, Adult, Strep Throat Additional Instructions: Thank you for visiting [facility]. We appreciate you trusting us with your care. If any additional problems come up don't hesitate to return to visit us. Please follow up with your primary care provider so they can plan additional care if needed and know about the problem that you had. If symptoms worsen come back to the Emergency Department. Any concerning symptoms that start such as chest pain, shortness of air, weakness or numbness on one side of the body, running high fevers or any other concerning symptoms return to the ER. You have been prescribed an antibiotic today to help fight your infection. Please take all of the antibiotic as directed. If after 48 hours the infection is not improving, please return for more care. If the infection worsens, return to ER for additional care. Please fill your medications at any pharmacy and follow the prescription instructions. Scripts Ondansetron (ONDANSETRON ODT) 4 Mg Tab.rapdis 1 TAB PO PRN Q6-8HRS PRN for NAUSEA, #16 TAB Prov: HECTOR EDEN OUTSIDE LABORER 09/22/18 Amoxicillin/Potassium Clav (AUGMENTIN 875-125 TABLET) 1 Each Tablet 1 TAB PO BID for 7 Days, #14 TAB Prov: HECTOR EDEN APRN 09/22/18 Problem Qualifiers Additional Impression: Otitis media Otitis media type: unspecified Laterality: left Qualified Codes: H66.92 - Otitis media, unspecified, left ear HECTOR EDEN OUTSIDE LABORER Sep 22, 2018 14:12
[2018-09-22] MEDS ORDERED: KETOROLAC 30 MG/ML VIAL. IM ONE (14:15)
[2018-09-22] MEDS ORDERED: ONDANSETRON ODT 4 MG TAB.RAPDIS. PO ONE (14:15)
[2018-09-22 14:45] VITALS: BP 128/70
== END 2018-09-22 15:18 | disposition home or self-care (01) ==
LOC: ER 12:42
DX: J02.0 Streptococcal pharyngitis (principal); B95.5 Unspecified streptococcus as the cause of diseases classified elsewhere; H66.92 Otitis media, unspecified, left ear; R11.0 Nausea; R51 Headache; Z98.890 Other specified postprocedural states
CPT/HCPCS: 96372; 99283; J1885; J8540; Q0162

== ENCOUNTER 2020-06-22 23:11 | Observation (INO) | payer MEDICAID ==
[~2020-06-22 23:11] MED LIST changes: +AMOX1TAB61 PO; +NAPR-699 PO; -NAPR250T6 PO
[2020-06-22 23:22] LABS: BILIRUBIN,URINE NEGATIVE (NEG); CLARITY,URINE CLEAR; COLOR,URINE YELLOW; NITRITE,URINE NEGATIVE (NEG); PH,URINE 6.5 (<5.0-8.0); PROTEIN,URINE NEGATIVE (NEG-TRACE); UROBILINOGEN,URINE 0.2 mg/dL (0.2 mg/dL)
[2020-06-22 23:27] LABS: BACTERIA,URINE MANY /HPF (0-FEW); RBC,URINE 0 /HPF (0-2)
[2020-06-22 23:29] LABS: BARBITURATES NEG (NEG); BENZODIAZEPINES NEG (NEG); CANNABINOIDS NEG (NEG); COCAINE NEG (NEG); METHADONE NEG (NEG); OPIATES NEG (NEG); PHENCYCLIDINE NEG (NEG)
[2020-06-22 23:30] LABS: AMPHETAMINE/METHAMPHETAMINE NEG (NEG)
[2020-06-22] MEDS ORDERED: IV RINGERS,LACTATED 1000ML 1,000 ML IV SCH (23:30)
--- NOTE | 2020-06-23 00:05 | RAD ---
Ultrasound OB limited HISTORY: Positive test in ER Limited sonographic assessment was performed by transabdominal technique. Multiple static i mages were obtained. There is a live intrauterine the heartbeat is confirmed at 173 beats for minute. Visualizat ion of structures is limited this early gestational age. The measurements are as follows: BPD 2.9 cm 15 weeks 1 day Head circumference 11 cm 15 weeks 3 days Abdominal circumference 8.9 cm 15 weeks 1 day Femur length 1.5 cm 14 weeks 4 days The estimated size by ultrasound is 15 weeks 1 day with an estimated date of confinement of December. IMPRESSION: 1. Single live intrauterine measures 15 weeks 1 day gestational age. There is no first trim ulysses ultrasound for accurate LMP to confirm appropriate growth. 2. No abnormalities identified however a structural survey would be performed at 18-21 weeks ge stational age. Electronically signed by: Carlo Cueto III, MD (06/23/2020 12:03 AM) [facility]
[2020-06-23] MEDS ORDERED: ACET325T9 PO (03:39)
[2020-06-23] MEDS ORDERED: PNV1TABL78 PO (03:39)
== END 2020-06-23 00:01 | disposition home or self-care (01) ==
LOC: 3 SO LND 23:11
PROVIDERS: ADMIT Obstetrics & Gynecology; ATTEND Obstetrics & Gynecology
DX: O26.892 Other specified pregnancy related conditions, second trimester (principal); R10.9 Unspecified abdominal pain; M79.10 Myalgia, unspecified site; Z3A.15 15 weeks gestation of pregnancy; Z79.899 Other long term (current) drug therapy
CPT/HCPCS: 59025; 76815; 80307; 81001; 87086; G0378; G0379

== ENCOUNTER 2020-06-23 00:06 | Emergency (ER) | payer MEDICAID ==
[~2020-06-23] VITALS: Ht 165.1 cm; Wt 86.3 kg
--- NOTE | 2020-06-23 02:00 | PHYS DOC ---
Past Medical History Past Medical History: No Pertinent History Past Surgical History: Additional Past Surgical Histo: FOR STILLBORN AT 8 MONTHS: OCTOBER 04, 2017 Smoking Status: Never Smoker Alcohol Use: None Drug Use: None General Adult EDM: Chief Complaint: GENERALIZED BODY ACHES HPI: HPI: Patient is a 29 year old female presents to the emergency department with right-sided abdominal pain that radiates down her right leg, accompanied with diffuse body aching. Began Tuesday and has increased in severity where the pain is currently 6 out of 10 and constant the right side of her abdomen radiating to her back and down her right leg. Rest of her body has minor aching. Patient does not speak Faroese, so exam was conducted over the phone with sister translating. Patient had an ultrasound and test performed yesterday which determined that she was . Over the phone the sister confirmed that this is how the patient normally feels during . Patient denies any fever chills nausea vomiting diarrhea. Patient has had 4 C-sections, 1 stillbirth. Review of Systems: Review of Systems: Constitutional: Denies fever or chills Eyes: Denies redness or eye pain HENT: Denies nasal congestion or sore throat Respiratory: Denies cough or shortness of breath Cardiovascular: Denies chest pain or palpitations GI: Complains of right-sided abdominal pain, denies diarrhea : Denies dysuria or hematuria Musculoskeletal: Complains of diffuse achiness, denies weakness, complains of right-sided back pain, complains of right leg pain. Integument: Denies rash or skin lesions Neurologic: Denies headache, focal weakness or sensory changes Complete systems were reviewed and found to be within normal limits, except as documented in this note. Heart Score: C/O Chest Pain: N/A Family History: Family History: No relevant family history Current Medications: No home medications Current Medications Medications (Trade) Dose Ordered Sig/Gwen Start Time Stop Time Status Last Admin Dose Admin Acetaminophen (Tylenol) 500 mg 1X ONCE 06/23/20 02:15 06/23/20 02:16 Sodium Chloride 1,000 ml @ 1,000 mls/hr 1X ONCE 06/23/20 02:15 06/23/20 03:14 Allergies: Allergies: Allergies Coded Allergies Type Severity Reaction Last Updated Verified No Known Drug Allergies 03/08/14 No Physical Exam: PE: Constitutional: Well developed, well nourished, no acute distress, non-toxic appearance HENT: Normocephalic, atraumatic Eyes: PERRL, EOMI, conjunctiva normal, no discharge Neck: Normal range of motion, no tenderness, supple Lungs & Thorax: No respiratory distress, equal chest rise and fall, CTAB Abdomen: Soft, tenderness in the right upper and lower quadrant to palpation, normal active bowel sounds in all 4 quadrants Skin: Warm, dry, no erythema, no rash Back: No tenderness, no CVA tenderness Extremities: Pain in right leg, thigh, to palpation, positive straight leg test on the right side Neurologic: Alert and oriented X 3, normal motor function, normal sensory function, no focal deficits noted Psychologic: Affect normal, judgment normal Current Patient Data: Vital Signs: Vital Signs Date Time Temp Pulse Resp B/P (MAP) Pulse Ox O2 Delivery O2 Flow Rate FiO2 06/23/20 01:10 96.5 65 18 114/65 (81) 100 Room Air 96.5 EKG: EKG: At 21:45, sinus rhythm, heart rate 77 bpm, QRS interval 86 ms, QT interval 404 ms, QTc interval 495 ms, AL interval 166 ms Radiology/Procedures: Radiology/Procedures: [] Course & Med Decision Making: Course & Med Decision Making 29-year-old female presents to the emergency department with generalized aches, right-sided abdominal pain, sided back pain going down right leg. 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 During time in the emergency department we uncovered recent imaging and urine test from 06/22 indicating the patient was . Physical exam was performed, labs drawn. Because of positive test and positive ultrasound-additional imaging was not performed. Sister who translated indicated that this is how the patient normally presents during . Determined that patient was okay for discharge with Tylenol as pain management. 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 Discussed findings and plan with patient, who acknowledges understanding and agreement. Elizabeth Disclaimer: Elizabeth Disclaimer: This electronic medical record was generated, in whole or in part, using a voice recognition dictation system. Departure Departure Impression: Primary Impression: Qualified Codes: Z34.90 - Encounter for supervision of normal , unspecified, unspecified trimester Additional Impressions: Abdominal pain in Qualified Codes: O26.892 - Other specified related conditions, second trimester; R10.9 - Unspecified abdominal pain Leg pain Qualified Codes: M79.604 - Pain in right leg Disposition: 01 DC HOME SELF CARE/HOMELESS Condition: STABLE Referrals: NO PCP (PCP) VENECIA BENZ Jr, MD Patient Instructions: ABCs of , Abdominal Pain During , [id number], Back Pain in , Sciatica, [id number] Additional Instructions: ICE area of discomfort 20 min on then leave off next 20 min. Repeat several times daily as needed for next few days. Take over the counter Tylenol as needed for pain. Scripts Pnv No.122/Iron/Folic Acid ( Multi Tablet) 1 Each Tablet 1 TAB PO DAILY for 30 Days, #30 TAB 0 Refills Prov: HECTOR BASURTO DO 06/23/20 Acetaminophen (TYLENOL) 325 Mg Tablet 1 TAB PO PRN Q4HRS PRN for PAIN, #30 TAB Prov: HECTOR BASURTO DO 06/23/20 HECTOR BASURTO DO Jun 23, 2020 02:00
[2020-06-23] MEDS ORDERED: ACETAMINOPHEN 500 MG TABLET PO ONE (02:15)
[2020-06-23] MEDS ORDERED: IV NORMAL SALINE 1000ML BAG 1,000 ML IV ONE (02:15)
[2020-06-23 03:01] LABS: BASO % 0 % (0-3); EOS # 0.1 x10^3/uL (0.0-0.7); EOS % 1 % (0-3); HEMATOCRIT 29.6 % (36.0-47.0); HEMOGLOBIN 9.2 g/dL (12.0-15.5); LYMPH # 2.2 x10^3/uL (1.0-4.8); LYMPH % 31 % (24-48); MEAN CORPUSCULAR HEMOGLOBIN 23 pg (25-35); MEAN CORPUSCULAR HGB CONC 31 g/dL (31-37); MEAN CORPUSCULAR VOLUME 73 fL (79-100); MONO # 0.5 x10^3/uL (0.0-1.1); MONO % 6 % (0-9); NEUT # 4.5 x10^3/uL (1.8-7.7); NEUT % 62 % (31-73); PLATELET COUNT 356 x10^3/uL (140-400); RED BLOOD COUNT 4.03 x10^6/uL (3.50-5.40); RED CELL DISTRIBUTION WIDTH 18.8 % (11.5-14.5); WHITE BLOOD COUNT 7.3 x10^3/uL (4.0-11.0)
[2020-06-23 03:08] LABS: CREATININE 0.7 mg/dL (0.6-1.0); GFR 97.6; POTASSIUM 3.7 mmol/L (3.5-5.1)
[2020-06-23 03:14] LABS: ALBUMIN 2.5 g/dL (3.4-5.0); ALBUMIN/GLOBULIN RATIO 0.5 (1.0-1.7); TOTAL BILIRUBIN 0.3 mg/dL (0.2-1.0); TOTAL PROTEIN 7.1 g/dL (6.4-8.2)
[2020-06-23 03:36] LABS: ANISOCYTOSIS SLIGHT; HYPOCHROMIA MOD; MICROCYTOSIS SLIGHT; PLT ESTIMATE ADEQUATE (ADEQUATE)
[2020-06-23] MEDS ORDERED: PNV1TABL78 PO (03:39)
[2020-06-23] MEDS ORDERED: ACET325T9 PO (03:39)
[2020-06-23 04:30] VITALS: BP 119/78
--- NOTE | 2020-06-23 07:32 | EKG ---
[facility] [address] [place] [address] Test Date: 2020-06-22 Test Time: 21:45:42 Pat Name: CRYSTAL MILLIGAN Department: Room: Gender: F Para Machine Operator: : 1990 Requested By: HECTOR BASURTO Order Number: [id number] Reading MD: Measurements Intervals [place] Rate: 77 P: 32 MA: 166 QRS: 20 QRSD: 86 T: 16 QT: 404 QTc: 459 Interpretive Statements SINUS RHYTHM NO SPECIFIC ECG ABNORMALITIES RI6.01 No previous ECG available for comparison
== END 2020-06-23 05:12 | disposition home or self-care (01) ==
LOC: ER 00:06
DX: O26.891 Other specified pregnancy related conditions, first trimester (principal); R10.31 Right lower quadrant pain; M79.604 Pain in right leg; Z98.890 Other specified postprocedural states; Z3A.00 Weeks of gestation of pregnancy not specified
CPT/HCPCS: 36415; 80053; 83735; 84702; 85025; 93005; 96360; 99284; J7030

== ENCOUNTER 2020-08-05 15:38 | Emergency (ER) | payer MEDICAID ==
[~2020-08-05] VITALS: Ht 167.6 cm; Wt 95.4 kg
[~2020-08-05 15:38] MED LIST changes: +ACET325T9 PO; +PNV1TABL78 PO
[2020-08-05] MEDS ORDERED: IV NORMAL SALINE 1000ML BAG 1,000 ML IV SCH (16:30)
[2020-08-05 16:42] LABS: BASO % 0 % (0-3); EOS # 0.1 x10^3/uL (0.0-0.7); EOS % 1 % (0-3); HEMATOCRIT 30.4 % (36.0-47.0); HEMOGLOBIN 9.7 g/dL (12.0-15.5); LYMPH # 1.3 x10^3/uL (1.0-4.8); LYMPH % 16 % (24-48); MEAN CORPUSCULAR HEMOGLOBIN 24 pg (25-35); MEAN CORPUSCULAR HGB CONC 32 g/dL (31-37); MEAN CORPUSCULAR VOLUME 76 fL (79-100); MONO # 0.6 x10^3/uL (0.0-1.1); MONO % 8 % (0-9); NEUT # 6.3 x10^3/uL (1.8-7.7); NEUT % 75 % (31-73); PLATELET COUNT 360 x10^3/uL (140-400); RED BLOOD COUNT 3.98 x10^6/uL (3.50-5.40); RED CELL DISTRIBUTION WIDTH 19.8 % (11.5-14.5); WHITE BLOOD COUNT 8.4 x10^3/uL (4.0-11.0)
[2020-08-05 16:44] LABS: BILIRUBIN,URINE NEGATIVE (NEG); CLARITY,URINE CLEAR; NITRITE,URINE NEGATIVE (NEG); PROTEIN,URINE NEGATIVE (NEG-TRACE); UROBILINOGEN,URINE 0.2 mg/dL (0.2 mg/dL)
[2020-08-05 16:53] LABS: COLOR,URINE STRAW
[2020-08-05 16:55] LABS: BACTERIA,URINE MODERATE /HPF (0-FEW); RBC,URINE 0 /HPF (0-2); WBC,URINE OCC /HPF (0-4)
[2020-08-05 17:08] LABS: CREATININE 0.6 mg/dL (0.6-1.0); GFR 116.6; POTASSIUM 3.5 mmol/L (3.5-5.1)
[2020-08-05 17:13] LABS: ALBUMIN 2.5 g/dL (3.4-5.0); DIRECT BILIRUBIN 0.1 mg/dL (0.0-0.2); TOTAL BILIRUBIN 0.3 mg/dL (0.2-1.0); TOTAL PROTEIN 6.7 g/dL (6.4-8.2)
--- NOTE | 2020-08-05 17:23 | RAD ---
US OB LIMITED History: Reason: Abdominal pain CHECK FHR / Spl. Instructions: / History: Comparison: June 22, 2020 Technique: Multiple grayscale images, color Doppler, and M-mode images of the uterus are obtained. Findings: There is a single intrauterine gestation in cephalic presentation. The placenta is posterior in locat ion without evidence of placenta previa. The amount of amniotic fluid appears appropriate. Cervical length is 6.8 cm. Biometrical data: BPD = 4.78 cm for 20 weeks 3 days. HC = 18.54 cm for 20 weeks 6 days. AC = 15.36 cm for 20 weeks 4 days. FL = 3.2 cm for 20 weeks 0 days. HC/AC ratio = 1.1. Overall, the estimated sonographic gestational age is 20 weeks 3 days for an estimated date of delive ry of December 30, 2020. The estimated date of delivery provided by the last menstrual period is 2020. Estimated weight is 348 grams. heart rate 162 bpm. There is movement. Impression: 1. Single intrauterine gestational age 20 weeks 3 days with heart rate 162 bpm. Kwasi mmend routine anatomic screening at 18-22 weeks. Electronically signed by: Juliano Gorman DO (08/05/2020 5:21 PM) [facility]
--- NOTE | 2020-08-05 17:26 | RAD ---
US ABDOMEN LTD, US ABDOMEN LTD History: Reason: RLQ PAIN / Spl. Instructions: / History: Comparison: None. Technique: Transabdominal ultrasound images are obtained of the right upper and right lower quadrant. Findings: Liver is normal in echogenicity. Right hepatic lobe measures 14.6 cm. Portal flow is hepatopedal. Contracted gallbladder. No cholelithiasis. No gallbladder wall thickening. Common bile duct measures 2.4 mm in diameter. Visualized pancreas not well seen due to overlying bowel gas. The right kidney measures 12.0 x 4.8 x 4.3 cm. No hydronephrosis. Visualized portions of the aorta and IVC have normal caliber. Appendix not identified. Right ovary measures 3.2 x 1.4 cm. Normal Doppler flow to the right ovary. No adnexal mass or fluid c ollection. No free fluid. IMPRESSION: 1. Contracted gallbladder. 2. Appendix not identified. Electronically signed by: Juliano Gorman DO (08/05/2020 5:24 PM) [facility]
--- NOTE | 2020-08-05 17:35 | PHYS DOC ---
Past Medical History Past Medical History: No Pertinent History (TED WEINBERG DO) Past Surgical History: Additional Past Surgical Histo: FOR STILLBORN AT 8 MONTHS: [birth year]OBER 04, 2017 (TED WEINBERG DO) Smoking Status: Never Smoker Alcohol Use: None Drug Use: None (TED WEINBERG DO) General Adult EDM: Chief Complaint: ABDOMINAL PAIN IN HPI: HPI: 29 yo F @21w2d (per 06/22/20 US) presents to the ED with complaints of right flank pain and abdominal pain. History is limited due to [place] speaking-rn attempting nurse reviewer services. (TED WEINBERG DO) Review of Systems: Review of Systems: Constitutional: Denies fever or chills. [] Eyes: Denies change in visual acuity. [] HENT: Denies nasal congestion or sore throat. [] Respiratory: Denies cough or shortness of breath. [] Cardiovascular: Denies chest pain or edema. [] GI: Denies nausea, vomiting or diarrhea : Denies dysuria or hematuria Musculoskeletal: Denies back pain or joint pain. [] Integument: Denies rash or diaphoresis Neurologic: Denies headache, focal weakness or sensory changes. [] Endocrine: Denies polyuria or polydipsia. [] Lymphatic: Denies swollen glands. [] Psychiatric: Denies depression or anxiety. [] (TED WEINBERG DO) Heart Score: C/O Chest Pain: No Risk Factors: Risk Factors: DM, Current or recent (<one month) smoker, HTN, HLP, family history of CAD, obesity. Risk Scores: Score 0 - 3: 2.5% MACE over next 6 weeks - Discharge Home Score 4 - 6: 20.3% MACE over next 6 weeks - Admit for Clinical Observation Score 7 - 10: 72.7% MACE over next 6 weeks - Early Invasive Strategies (TED WEINBERG DO) Current Medications: Current Medications Medications (Trade) Dose Ordered Sig/Gwen Start Time Stop Time Status Last Admin Dose Admin Sodium Chloride 1,000 ml @ 1,000 mls/hr Q1H 08/05/20 16:30 08/05/20 17:29 DC (TED WEINBERG DO) Allergies: Allergies: Allergies Coded Allergies Type Severity Reaction Last Updated Verified No Known Drug Allergies 03/08/14 No [facility] Physical Exam: PE: Constitutional: Well developed, well nourished, no acute distress, non-toxic appearance, afebrile HENT: Normocephalic, atraumatic, dry mucous membranes, flushed cheeks Eyes: EOMI, conjunctiva normal, no discharge. Neck: Normal range of motion, supple, Cardiovascular: S1/2 present, regular rhythm Lungs & Thorax: Speaking in full sentences, bilateral equal chest rise, no tachypnea or increased work of breathing Abdomen: soft, gravid, fundal height just 1 cm below umbilicus, jumps with LUQ/RUQ and RLQ palpation-suspect possible Mcburneys point tenderness, no Argueta sign Skin: Warm, dry, no erythema, no rash. [] Back: No midline tenderness, +right CVA tenderness. [] Extremities: No tenderness, no cyanosis, no lower extremity edema Neurologic: Alert and oriented X 3, normal motor function, normal sensory function, no focal deficits noted. [] Psychologic: Affect normal, judgement normal, mood normal. [] ([facility] Current Patient Data: Labs: Laboratory Tests Test 08/05/20 16:00 08/05/20 16:32 Urine Collection Type Unknown Urine Color Straw Urine Clarity Clear Urine pH 7.0 (<5.0-8.0) Urine Specific [place] <=1.005 (1.000-1.030) Urine Protein Negative mg/dL (NEG-TRACE) Urine Glucose (UA) Negative mg/dL (NEG) Urine Ketones (Stick) Negative mg/dL (NEG) Urine Blood Negative (NEG) Urine Nitrite Negative (NEG) Urine Bilirubin Negative (NEG) Urine Urobilinogen Dipstick 0.2 mg/dL (0.2 mg/dL) Urine Leukocyte Esterase Trace (NEG) Urine RBC 0 /HPF (0-2) Urine WBC Occ /HPF (0-4) Urine Squamous Epithelial Cells Mod /LPF Urine Bacteria Moderate /HPF (0-FEW) White Blood Count 8.4 x10^3/uL (4.0-11.0) Red Blood Count 3.98 x10^6/uL (3.50-5.40) Hemoglobin 9.7 g/dL (12.0-15.5) L Hematocrit 30.4 % (36.0-47.0) L Mean Corpuscular Volume 76 fL (79-100) L Mean Corpuscular Hemoglobin 24 pg (25-35) L Mean Corpuscular Hemoglobin Concent 32 g/dL (31-37) Red Cell Distribution Width 19.8 % (11.5-14.5) H Platelet Count 360 x10^3/uL (140-400) Neutrophils (%) (Auto) 75 % (31-73) H Lymphocytes (%) (Auto) 16 % (24-48) L Monocytes (%) (Auto) 8 % (0-9) Eosinophils (%) (Auto) 1 % (0-3) Basophils (%) (Auto) 0 % (0-3) Neutrophils # (Auto) 6.3 x10^3/uL (1.8-7.7) Lymphocytes # (Auto) 1.3 x10^3/uL (1.0-4.8) Monocytes # (Auto) 0.6 x10^3/uL (0.0-1.1) Eosinophils # (Auto) 0.1 x10^3/uL (0.0-0.7) Basophils # (Auto) 0.0 x10^3/uL (0.0-0.2) Maternal Serum HCG Beta Subunit 03673 mIU/mL (0-5) H Sodium Level 140 mmol/L (136-145) Potassium Level 3.5 mmol/L (3.5-5.1) Chloride Level 106 mmol/L (98-107) Carbon Dioxide Level 23 mmol/L (21-32) Anion Gap 11 (6-14) Blood Urea Nitrogen 6 mg/dL (7-20) L Creatinine 0.6 mg/dL (0.6-1.0) Estimated GFR (Cockcroft-Gault) 116.6 Glucose Level 93 mg/dL (70-99) Calcium Level 8.0 mg/dL (8.5-10.1) L Total Bilirubin 0.3 mg/dL (0.2-1.0) Direct Bilirubin 0.1 mg/dL (0.0-0.2) Aspartate Amino Transferase (AST) 17 U/L (15-37) Alanine Aminotransferase (ALT) 14 U/L (14-59) Alkaline Phosphatase 61 U/L (46-116) Troponin I Quantitative < 0.017 ng/mL (0.000-0.055) Total Protein 6.7 g/dL (6.4-8.2) Albumin 2.5 g/dL (3.4-5.0) L Lipase 98 U/L (73-393) Laboratory Tests 08/05/20 16:32 Laboratory Tests 08/05/20 16:32 Vital Signs: Vital Signs Date Time Temp Pulse Resp B/P (MAP) Pulse Ox O2 Delivery O2 Flow Rate FiO2 08/05/20 15:50 98.7 99 22 119/78 (92) 98 Room Air 98.7 (TED WEINBERG DO) EKG: EKG: [] (TED WEINBERG DO) Radiology/Procedures: Radiology/Procedures: IMAGING REPORT Signed PATIENT: CRYSTAL MILLIGAN ACCOUNT: [id number] : 1990 LOCATION: ER AGE: 29 SEX: F EXAM STATUS: REG ER ORD. PHYSICIAN: TED WEINBERG DO REASON: ruq/epigastric/r flank pain, eval GB, appey and FHR PROCEDURE: ABDOMEN LTD US ABDOMEN LTD, US ABDOMEN LTD History: Reason: RLQ PAIN / Spl. Instructions: / History: Comparison: None. Technique: Transabdominal ultrasound images are obtained of the right upper and right lower quadrant. Findings: Liver is normal in echogenicity. Right hepatic lobe measures 14.6 cm. Portal flow is hepatopedal. Contracted gallbladder. No cholelithiasis. No gallbladder wall thickening. Common bile duct measures 2.4 mm in diameter. Visualized pancreas not well seen due to overlying bowel gas. The right kidney measures 12.0 x 4.8 x 4.3 cm. No hydronephrosis. Visualized portions of the aorta and IVC have normal caliber. Appendix not identified. Right ovary measures 3.2 x 1.4 cm. Normal Doppler flow to the right ovary. No adnexal mass or fluid collection. No free fluid. IMPRESSION: 1. Contracted gallbladder. 2. Appendix not identified. Electronically signed by: Juliano Ireland DO (08/05/2020 5:24 PM) [facility] DICTATED and SIGNED BY: JLUIANO IRELAND DOIMAGING REPORT Signed PATIENT: CRYSTAL MILLIGAN ACCOUNT: [id number] : 1990 LOCATION: ER AGE: 29 SEX: F EXAM STATUS: REG ER ORD. PHYSICIAN: TED WEINBERG DO REASON: CHECK FHR PROCEDURE: OB LIMITED US OB LIMITED History: Reason: Abdominal pain CHECK FHR / Spl. Instructions: / History: Comparison: June 22, 2020 Technique: Multiple grayscale images, color Doppler, and M-mode images of the uterus are obtained. Findings: There is a single intrauterine gestation in cephalic presentation. The placenta is posterior in location without evidence of placenta previa. The amount of a mniotic fluid appears appropriate. Cervical length is 6.8 cm. Biometrical data: BPD = 4.78 cm for 20 weeks 3 days. HC = 18.54 cm for 20 weeks 6 days. AC = 15.36 cm for 20 weeks 4 days. FL = 3.2 cm for 20 weeks 0 days. HC/AC ratio = 1.1. Overall, the estimated sonographic gestational age is 20 weeks 3 days for an estimated date of delivery of December 30, 2020. The estimated date of delivery provided by the last menstrual period is December 13, 2020. Estimated weight is 348 grams. heart rate 162 bpm. There is movement. Impression: 1. Single intrauterine gestational age 20 weeks 3 days with heart rate 162 bpm. Recommend routine anatomic screening at 18-22 weeks. Electronically signed by: Juliano Ireland DO (08/05/2020 5:21 PM) [facility] DICTATED and SIGNED BY: JULIANO IRELAND DO DATE: 08/05/20 [id number] (TED WEINBERG DO) Course & Med Decision Making: Course & Med Decision Making Pertinent Labs and Imaging studies reviewed. (See chart for details) Concern for flank pain and diffuse, nonlocalized abdominal pain and a second trimester , with language barrier. Appendix not seen on ultrasound. Contracted gallbladder. Patient with no proteinuria, blood pressure unremarkable. Concern for UTI. Due to shift change patient was signed out to oncoming physician. 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 (TED WEINBERG DO) Course & Med Decision Making Assumed care at shift change disposition pending reevaluation. Patient complaints of abdominal pain-- pain is diffuse but primarily in the RLQ on exam. Patient labs within normal limits ultrasound no acute abnormality appendix not identified. On exam patient tenderness right lower quadrant. MRI was performed negative for acute appendicitis. Patient's urine with trace LEs and occasional WBCs We will discharge patient home on Tylenol for pain. Patient will receive Macrobid for UTI during . (MARIE DODSON DO) Dragon Disclaimer: Dragon Disclaimer: This electronic medical record was generated, in whole or in part, using a voice recognition dictation system. (TED WEINBERG DO) Departure Departure Impression: Primary Impression: Abdominal pain Additional Impressions: Urinary tract infection Disposition: HOME / SELF CARE / HOMELESS Condition: STABLE Referrals: NO PCP (PCP) Patient Instructions: Abdominal Pain During , Urinary Tract Infection Scripts Ondansetron Hcl (ZOFRAN) 4 Mg Tablet 1 TAB PO Q6HRS, #20 TAB Prov: MARIE DODSON DO 08/05/20 Nitrofurantoin Monohyd/M-Cryst (MACROBID 100 MG CAPSULE) 100 Mg Capsule 1 CAP PO BID for 10 Days, #20 CAP 0 Refills Prov: MARIE DODSON DO 08/05/20 TED WEINBERG DO August 05, 2020 17:35 MARIE DODSON DO August 05, 2020 22:20
--- NOTE | 2020-08-05 20:23 | EKG ---
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
--- NOTE | 2020-08-05 22:01 | RAD ---
Exam: MRI abdomen without contrast INDICATION: with right lower quadrant pain TECHNIQUE: Multiplanar multisequence MRI of the abdomen was obtained without the administration of IV contrast. Comparisons: Ultrasound same day FINDINGS: Appendix is identified and is unremarkable. Gravid appearance of the uterus. Fetus is not well characterized secondary to technique of this study was sent is posterior. No hydronephrosis. Bladder is partially distended and not well evaluated. Visualized portions of the large and small bowel are unremarkable. No intra-abdominal ascites. Pelvic vasculature has a normal caliber. No pelvic adenopathy identified. Bone marrow signal is normal. IMPRESSION: 1. Normal appendix. No evidence for acute appendicitis. 2. uterus Electronically signed by: Dorota Griffith MD (08/05/2020 9:59 PM) [facility]
[2020-08-05] MEDS ORDERED: NITR100C62 PO (22:17)
[2020-08-05] MEDS ORDERED: ONDA4TAB7 PO (22:17)
[2020-08-05 22:58] VITALS: BP 105/64
== END 2020-08-05 23:20 | disposition home or self-care (01) ==
LOC: ER 15:38
DX: O23.42 Unspecified infection of urinary tract in pregnancy, second trimester (principal); Z3A.20 20 weeks gestation of pregnancy
CPT/HCPCS: 36415; 74181; 76705; 76815; 80048; 80076; 81001; 83690; 84484; 84702; 85025; 87086; 93005; 93975; 96360; 96361; 99285; J7030

== ENCOUNTER 2020-09-25 14:43 | Observation (INO) | payer MEDICAID ==
[~2020-09-25] VITALS: Ht 161.3 cm; Wt 110.0 kg
[~2020-09-25 14:43] MED LIST changes: +ONDA4TAB7 PO
[2020-09-25] MEDS ORDERED: IV RINGERS,LACTATED 1000ML 1,000 ML IV PRN (16:00)
[2020-09-25 16:04] LABS: BILIRUBIN,URINE NEGATIVE (NEG); CLARITY,URINE CLEAR; COLOR,URINE YELLOW; NITRITE,URINE NEGATIVE (NEG); PROTEIN,URINE NEGATIVE (NEG-TRACE); UROBILINOGEN,URINE 0.2 mg/dL (0.2 mg/dL)
[2020-09-25 16:11] LABS: BACTERIA,URINE MANY /HPF (0-FEW)
[2020-09-25 16:12] LABS: RBC,URINE 0 /HPF (0-2); WBC,URINE OCC /HPF (0-4)
[2020-09-25] MEDS: FAMOTIDINE 20 MG TABLET. PO ONE (18:02)
== END 2020-09-25 19:30 | disposition home or self-care (01) ==
LOC: 3 SO LND 14:43
PROVIDERS: ADMIT Obstetrics & Gynecology; ATTEND Obstetrics & Gynecology
DX: O26.893 Other specified pregnancy related conditions, third trimester (principal); R55 Syncope and collapse; Z3A.28 28 weeks gestation of pregnancy
CPT/HCPCS: 59025; 81001; 87086; G0378; G0379